=== PATIENT | male | born 1955 | race Caucasian/White ===

== ENCOUNTER 2017-05-06 08:00 | Observation (INO) ==
[2017-07-29 08:34] VITALS: BMI 25.8
[2017-07-29 08:38] VITALS: RESP 16
--- NOTE | 2017-07-29 09:45 | Cardiology History & Physical ---
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 Avila with a history of paroxysmal atrial fibrillation, nonrheumatic aortic valve insufficiency and a family history of ischemic cardiac disease who is admitted today for observation for antiarrhythmic therapy on Flecainide. His arrhythmia is asymptomatic and he takes Metoprolol and Eliquis only when afib occurs. Review of Systems - Constitutional Constitutional: Absent: chills, fatigue, fever(s) - EENMT Eyes: Absent: change in vision Balance: Absent: vertigo Mouth/Throat: Absent: sore throat - Cardiovascular Cardiovascular: Absent: chest pain, palpitations, syncope, dyspnea on exertion, orthopnea, edema Vascular: Absent: pedal edema - Respiratory Respiratory: Absent: cough, dyspnea - Gastrointestinal Gastrointestinal: Absent: diarrhea, nausea, vomiting - Genitourinary Genitourinary: Absent: dysuria - Integumentary/Breasts Integumentary: Absent: rash - Neurological Neurological: Absent: dizziness - Endocrine Endocrine: Absent: palpitations PFSH Patient Stated Medical History Dental Problems Yes: DENTAL IMPLANTS, ROOT CANALS X3 Cardiac Arrhythmia Yes: A-FIB Rheumatic Fever Yes: AGE 7 Valvular Heart Disease Yes: MITRALVALVE PROLAPSE Other GI Yes: LACTOSE INTOLERANT Other Infectious Yes: MALARIA 30 YEARS AGO Surgical History: Bilateral TKA. Dental Implants. Lt wrist reconstruction. Tonsillectomy Family History: Maternal grandfather - [place] Paternal grandfather - [place] - Social History Smoking status: Never smoker Substance use type: does not use Alcohol intake frequency: holidays/special occasions only Housing: house Household members: spouse Current occupational status: employed Current occupation: Physician Current occupational exposures/hazards: No Does patient use chewing tobacco?: No Current residence: Apartment/Private Home Medications Allergies Allergy/AdvReac Type Severity Reaction Status Date / Time latex Allergy Mild ITCHING Verified 07/29/17 08:44 Exam Vital signs: Temperature 97.9 F 07/29/17 08:37 Pulse Rate 55 L 07/29/17 09:28 Respiratory Rate 16 07/29/17 08:37 Blood Pressure 132/65 07/29/17 08:37 Pulse Oximetry 97 07/29/17 08:37 - Constitutional no acute distress, well developed, cooperative - Routine HEENT Exam Head: Present: normocephalic ENT: Present: mucous membranes moist - Routine Neck Exam Absent: JVD, carotid bruit - Routine Chest/Breast/Axilla Exam Chest wall: Absent: tenderness - Routine Respiratory Exam Present: CTA bilaterally. Absent: rales, wheezes - Routine Cardiovascular Exam Present: RRR, murmur (I/Vi). Absent: JVD - Routine Abdominal Exam Present: soft, normoactive bowel sounds - Routine Extremities Exam Present: no edema, pulses intact - Routine Skin Exam Present: intact, dry, warm - Routine Neurological Exam Present: alert, oriented X3 - Routine Psychiatric Exam Present: normal affect, normal thought process Results 07/29/17 08:45 07/30/17 04:27 Cardiac Enzymes 07/29/17 Range/Units 08:45 AST 28 (17-59) U/L CBC 07/29/17 Range/Units 08:45 WBC 5.1 (4.5-11.0) T/MM3 RBC 4.84 (4.50-5.90) M/MM3 Hgb 14.9 (13.5-17.5) GM/DL Hct 43.4 (41-53) % Plt Count 196 (130-400) T/MM3 Neut # 3.3 (1.8-7.7) T/MM3 Lymph # 1.4 (1-4.8) T/MM3 [place] # 0.4 (0-0.8) T/MM3 Eos # 0.1 (0-0.5) T/MM3 Baso # 0.0 (0-0.2) T/MM3 Comprehensive Metabolic Panel 07/29/17 Range/Units 08:45 Sodium 144 (134-144) MEQ/L Potassium 3.9 (3.6-5) MEQ/L Chloride 106 (98-107) MEQ/L Carbon Dioxide 26 (22-30) MEQ/L BUN 15.0 (9-20) MG/DL Creatinine 1.1 (0.8-1.5) MG/DL Glucose 91 (75-110) MG/DL Calcium 9.7 (8.4-10.2) MG/DL AST 28 (17-59) U/L ALT 30 (21-72) U/L Alkaline Phosphatase 54 (38-126) U/L Total Protein 7.3 (6.3-8.2) G/DL Albumin 4.4 (3.5-5.0) G/DL Intake and Output 07/28/17 07/29/17 07/29/17 22:59 06:59 14:59 Intake Total 0 / 0 Balance 0 / 0 Intake: Oral 0 / 0 Other: Weight 185 lb 3.013 oz Patient Weight 07/30/17 06:59 Weight 185 lb 3.013 oz - Imaging and Cardiology EKG results: image reviewed EKG interpretations - Dysrhythmias Sinus rhythms and dysrhythmias: sinus rhythm - Blocks, axis, hypertrophy, ST abn AV and intraventricular conduction: left posterior fascicular block - IN, pacemaker, normal Myocardial infarction: inferior IN (old age indeterminate) Hospital Course This is a general summary of the patient's hospital course. For more details refer to the complete medical record. Assessment and Plan - Attestation Attestation Narrative: 08/04/17 08:06 Recommendation After examining the patient I agree with the above assessment. I am involved in the formulation of the patient's plan of care. - Assessment and Plan (1) Paroxysmal atrial fibrillation Status: Acute Admit to observation for antiarrhythmic therapy on Flecainide. Monitor cardiac telemetry due to proarrhythmic properties of drug. Repeat EKG tomorrow am. (2) Nonrheumatic aortic valve insufficiency Status: Acute Recent echo stable, continue current therapy, routine monitoring. (3) Family history of ischemic heart disease and other diseases of the circulatory system Status: Acute Sepsis Assessment - Evaluation Sepsis screening result: No Definite Risk
[2017-07-29] MEDS: FLECAINIDE 50 MG TABLET PO SCH ×2 (09:56→20:57)
[2017-07-30] MEDS: FLECAINIDE 50 MG TABLET PO SCH (08:18)
[2017-07-30 08:19] VITALS: PULSE 77
[2017-07-30 08:23] VITALS: BP 125/75; TEMP 97.8; O2SAT 95
--- NOTE | 2017-07-30 08:57 | Discharge Instructions ---
<Julita Aburto - Last Filed: 07/30/17 09:08> Discharge Plan - Med Rec/Dispo Referrals/Follow Up: Boyd Avila MD [Physician] - 08/12/17 2:00 pm [facility] Instructions: Flecainide (By mouth) Prescriptions: New Flecainide [Tambocor] 50 mg PO Q12HR #60 tab Metoprolol Succinate 50 mg PO DAILY #30 tab.er.24h Discontinued Metoprolol Succinate [Metoprolol Succinate] 50 mg PO DAILY Apixaban [Eliquis] 5 mg PO DAILY - Disposition 01 Discharged Home, Self-Care <Boyd Avila - Last Filed: 08/04/17 08:40> Discharge Plan - Med Rec/Dispo - Attestation Attestation Narrative: 08/04/17 08:40 Recommendation After examining the patient I agree with the above assessment. I am involved in the formulation of the patient's plan of care.
== END 2017-07-30 09:08 | disposition home or self-care (01) ==
LOC: SRG
PROVIDERS: ADMIT Internal Medicine Cardiovascular Disease; ATTEND Internal Medicine Cardiovascular Disease